=== PATIENT | female | born 1975 | race Caucasian/White ===

== ENCOUNTER → 2019-04-06 | Outpatient (CLI) | payer BC ==
[2019-04-06 16:26] VITALS: BP 137/95; PULSE 97; RESP 16; TEMP 97.9; BMI 18.8
--- NOTE | 2019-04-06 16:34 | P.HPOB ---
History of Present Illness H&P Date: 04/06/19 Chief Complaint: The patient is here for her routine gynecologic exam and ma mmogram. This is a 43-year-old G0 with an LMP of 03/11/2019. The patient's 's status post vasectomy. The patient is without gynecologic complaints. Review of Systems The patient has lost about 7 pounds over the past 3 years. She denies respiratory, cardiac, or G.I. problems. 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 History of Any Multi-Drug Resistant Organisms: None Reported Past Surgical History: Breast Surgery Additional Past Surgical History / Comment(s): Right areolar mass removed from the breast. Past Anesthesia/Blood Transfusion Reactions: Motion Sickness Past Psychological History: No Psychological Hx Reported Smoking Status: Current every day smoker (Half of a pack per day) Past Alcohol Use History: None Reported Past Drug Use History: Marijuana Additional History: The patient has been since 2001 and works at the [employer]. - Past Family History Mother Family Medical History: No Reported History Additional Family Medical History / Comment(s): Maternal grandmother had breast cancer. Father Family Medical History: Myocardial Infarction ([place]) Medications and Allergies Home Medications Medication Instructions Recorded Confirmed Type traMADol HCl [Ultram] 50 mg PO Q6H PRN #30 tab 05/08/16 Rx Allergies Allergy/AdvReac Type Severity Reaction Status Date / Time acetaminophen [From Vicodin] AdvReac Unknown Verified 05/08/16 07:35 hydrocodone bitartrate AdvReac Unknown Verified 05/08/16 07:35 [From Vicodin] Exam Blood pressure 137/95, height 5'4", temperature 97.9, pulse 97, pulse oximeter 96%, respiratory rate 16. Height 5'4", weight 110 pounds, BMI 19. This is a well-developed well-nourished white female who is alert and oriented times 3 in no acute distress. HEENT: Within normal limits. NECK: Supple without mass or thyromegaly. CHEST AND LUNGS: Clear to auscultation. HEART: Regular rate and rhythm. BREASTS: Are without mass or discharge. AXILLARY EXAM: Negative for adenopathy. BACK: Negative for CVA tenderness. ABDOMEN: Soft, nontender, without palpable masses. PELVIC EXAM: Normal external genitalia. Cervix and vagina appear normal. There is no unusual discharge. There is no evidence of prolapse. The uterus is midposition, nongravid size and nontender. There are no palpable adnexal masses or tenderness. RECTAL EXAM: negative for mass or tenderness and is negative for occult blood. EXTREMITIES: Nontender. IMPRESSION: 1. 43-year-old female with normal gynecologic exam 2. is status post vasectomy. PLAN: 1. Pap smear was performed. 2. Self breast awareness was discussed with the patient. 3. Screening mammogram was done today. 4. She was advised to return in one year for her annual well woman exam and yearly mammogram.
--- NOTE | 2019-04-07 09:53 | MM ---
Reason for exam: screening (asymptomatic). Last mammogram was performed 3 years and 2 months ago. History: Patient is nulliparous. Family history of breast cancer in grandmother. Took hormonal contraceptives for 3 years beginning at age 29. Physical Findings: A clinical breast exam by your physician is recommended on an annual basis and results should be correlated with mammographic findings. MG Screening Mammo w CAD Bilateral CC and MLO view(s) were taken. Prior study comparison: January 23, 2016, bilateral MG screening mammo w CAD. June 14, 2008, bilateral digital screening mammogram. The breast tissue is heterogeneously dense. This may lower the sensitivity of mammography. Finding: There are indeterminate calcifications in the 1 o'clock middle position of the right breast 5cm from the nipple. New finding since January 23, 2016 and June 14, 2008. ASSESSMENT: Incomplete: need additional imaging evaluation, BI-RAD 0 RECOMMENDATION: Special view mammogram of the right breast. [facility] will attempt to contact patient to return for supplemental views.
== END | disposition home or self-care (01) ==
LOC: WWCWWP 15:42
PROVIDERS: ATTEND Obstetrics & Gynecology
DX: Z12.31 Encounter for screening mammogram for malignant neoplasm of breast (principal)
CPT/HCPCS: 77067

== ENCOUNTER → 2019-04-14 | Outpatient (CLI) | payer BC ==
--- NOTE | 2019-04-15 09:28 | MM ---
Reason for exam: additional evaluation requested from abnormal screening. Last mammogram was performed less than 1 month ago. History: Patient is nulliparous. Family history of breast cancer in grandmother. Benign excisional biopsy of the right breast, 2015. Took hormonal contraceptives for 3 years beginning at age 29. Physical Findings: Nurse did not find any significant physical abnormalities on exam. MG Work Up Mamm w CAD RT CC with magnification, LM with magnification, and LM view(s) were taken of the right breast. Prior study comparison: April 06, 2019, bilateral MG screening mammo w CAD. January 23, 2016, bilateral MG screening mammo w CAD. Faint scattered calcifications right breast probably benign, 6 month follow up recommended. These results were verbally communicated with the patient and result sheet given to the patient on 04/14/19. ASSESSMENT: Probably benign, BI-RAD 3 RECOMMENDATION: Follow-up diagnostic mammogram of the right breast in 6 months. (with magnification views)
== END | disposition home or self-care (01) ==
LOC: RADMAMWWP 14:47
PROVIDERS: ATTEND Obstetrics & Gynecology
DX: R92.8 Other abnormal and inconclusive findings on diagnostic imaging of breast (principal)
CPT/HCPCS: 77065

== ENCOUNTER → 2019-05-07 | Outpatient (CLI) | payer BC ==
--- NOTE | 2019-05-07 16:11 | CT ---
EXAMINATION TYPE: CT sinus wo con DATE OF EXAM: 05/07/2019 COMPARISON: None HISTORY: Chronic sinusitis and right ear pressure. CT DLP: 580 mGycm. Automated Exposure Control for Dose Reduction was Utilized. TECHNIQUE: CT scan of the sinuses is performed without contrast, axial images are obtained, coronal r eformatted images are also reviewed. FINDINGS: The paranasal sinuses including the frontal, ethmoid, sphenoid, and maxillary sinuses bila terally are well-aerated without abnormal opacification with exception of some minimal inflammatory c hange in the ethmoid air cells. The ostiomeatal complex is patent bilaterally on the coronal images. Shannan bullosa is noted on the left. However cell noted on the left. There is a deviated nasal septu m from the right. Visualized portion of mastoid air cells show no abnormal opacification. The globes are intact bilate rally. IMPRESSION: Minimal inflammatory change and additional findings above.
== END | disposition home or self-care (01) ==
LOC: RADCTMAIN 15:38
PROVIDERS: ATTEND Otolaryngology
DX: J32.2 Chronic ethmoidal sinusitis (principal); J34.2 Deviated nasal septum
CPT/HCPCS: 70486

== ENCOUNTER → 2022-12-03 | Outpatient (CLI) | payer BC ==
[2022-12-03 15:55] VITALS: BP 115/78; RESP 17; TEMP 98.4
--- NOTE | 2022-12-03 16:35 | P.HPOB ---
History of Present Illness H&P Date: 12/03/22 Chief Complaint: The patient is here for her routine gynecologic exam and ma mmogram. This is a 47-year-old G0 with an LMP of approximately 11/13/2022. She is without gynecologic complaints. Her is status post vasectomy. Menstrual periods are generally about every month but can vary slightly. Review of Systems She is gained about 20 pounds over the past 3 years. She denies respiratory, cardiac, or GI problems. 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 History of Any Multi-Drug Resistant Organisms: None Reported Past Surgical History: Breast Surgery Additional Past Surgical History / Comment(s): Right areolar mass removed from the breast. Past Anesthesia/Blood Transfusion Reactions: Motion Sickness Past Psychological History: No Psychological Hx Reported Smoking Status: Current every day smoker (Half pack per day.) Past Alcohol Use History: None Reported Additional Past Alcohol Use History / Comment(s): smokes 1/2-1 PPD, for past 20 years Past Drug Use History: Marijuana (She smokes marijuana daily.) Additional History: She has been 2001. She works at the [employer]. - Past Family History Mother Family Medical History: No Reported History Additional Family Medical History / Comment(s): Maternal grandmother had breast cancer. Father Family Medical History: Myocardial Infarction ([place]) Medications and Allergies Home Medications Medication Instructions Recorded Confirmed Type No Known Home Medications 12/03/22 12/03/22 History Allergies Allergy/AdvReac Type Severity Reaction Status Date / Time acetaminophen [From Vicodin] AdvReac Unknown Verified 12/03/22 15:52 hydrocodone bitartrate AdvReac Unknown Verified 12/03/22 15:52 [From Vicodin] Exam Vital Signs Temp Resp BP Pulse Ox 12/03/22 15:52 98.4 F 17 115/78 98 Intake and Output 12/03/22 12/03/22 12/03/22 06:59 14:59 22:59 Other: Weight 58.967 kg Height 5 feet 4 inches, weight 130 pounds, BMI 22.3. This is a well-developed well-nourished white female who is alert and oriented times 3 in no acute distress. HEENT: Within normal limits. NECK: Supple without mass or thyromegaly. CHEST AND LUNGS: Clear to auscultation. HEART: Regular rate and rhythm. BREASTS: Are without mass or discharge. AXILLARY EXAM: Negative for adenopathy. BACK: Negative for CVA tenderness. ABDOMEN: Soft, nontender, without palpable masses. PELVIC EXAM: Normal external genitalia. Cervix and vagina appear normal. There is a small amount of old menstrual type blood in the back of the vagina. There is no unusual discharge. There is no evidence of prolapse. The uterus is midposition, nongravid size and nontender. There are no palpable adnexal masses or tenderness. RECTAL EXAM: negative for mass or tenderness and is negative for occult blood. EXTREMITIES: Nontender. IMPRESSION: 1. 47-year-old female with normal gynecologic exam. 2. Previous abnormal screening mammogram in 2019 where a six-month right follow-up was recommended. The follow-up was not performed. PLAN: 1. Pap smear cotest was performed. 2. Self breast awareness was discussed with the patient. We have also discussed symptoms associated with inflammatory breast cancer. 3. Screening mammogram will be done today. 4. Osteoporosis prevention was discussed. I have stressed the importance of adequate calcium, vitamin D and regular exercise. Recommended amounts of calcium and vitamin D were also discussed. 5. The patient will keep a menstrual calendar. 6. She was advised to return in one year for her annual well woman exam.
--- NOTE | 2022-12-04 22:11 | MM ---
Reason for Exam: Screening (asymptomatic). Last mammogram was performed 3 year(s) and 8 month(s) ago. Patient History: Menarche at age 11. Patient has no children. Hormonal Contraceptives for 3 years from age 29 until age 32. 2016, Benign Excisional Biopsy on the right side. Maternal grandmother had breast cancer. Last menstrual period: 11/13/2022 Risk Values: Carol 5 year model risk: 1.5%. NCI Lifetime model risk: 13.4%. Prior Study Comparison: 01/23/2016 Bilateral Screening Mammogram, [facility]. 04/06/2019 Bilateral Screening Mammogram, [facility]. 04/14/2019 Right Diagnostic Mammogram, [facility]. Tissue Density: The breast tissue is heterogeneously dense. This may lower the sensitivity of mammography. Findings: Analyzed By CAD. Areas of asymmetric density appear unchanged. Benign pneumatosis calcifications on the right. There is no suspicious group of microcalcifications or new suspicious mass in either breast. Overall Assessment: Benign, BI-RAD 2 Management: Screening Mammogram of both breasts in 1 year. 1. Patient should continue monthly self breast exams. 2. A clinical breast exam by your physician is recommended on an annual basis. 3. This exam should not preclude additional follow-up of suspicious palpable abnormalities. Electronically signed and approved by: Yvonne Cortes M.D. Radiologist
== END ==
LOC: WWCWWP 15:46
PROVIDERS: ATTEND Obstetrics & Gynecology
DX: Z01.411 Encounter for gynecological examination (general) (routine) with abnormal findings (principal); Z12.31 Encounter for screening mammogram for malignant neoplasm of breast; F17.210 Nicotine dependence, cigarettes, uncomplicated; Z88.5 Allergy status to narcotic agent; Z91.048 Other nonmedicinal substance allergy status
CPT/HCPCS: 77067